=== PATIENT | female | born 1995 | race Caucasian/White ===

== ENCOUNTER 2017-08-16 01:08 | Emergency (ER) | payer BC ==
[~2017-08-16] VITALS: Ht 162.6 cm; Wt 66.7 kg
[2017-08-16 01:10] VITALS: BP 143/100
[2017-08-16] MEDS ORDERED: LIDOCAINE-MPF 1%, 5ML INFIL ONE (01:30)
[2017-08-16] MEDS ORDERED: BACITRACIN ZINC OINT 500U/GM, 0.9 GM ONE (01:59)
[2017-08-16] MEDS ORDERED: SODIUM CHLORIDE 0.9% 1,000ML IVBOLUS ONE (02:00)
== END 2017-08-16 02:20 | disposition home or self-care (01) ==
LOC: ED 02:00
DX: S01.111A Laceration without foreign body of right eyelid and periocular area, initial encounter (principal); X58.XXXA Exposure to other specified factors, initial encounter; Y93.89 Activity, other specified; Y92.410 Unspecified street and highway as the place of occurrence of the external cause; Y99.8 Other external cause status
CPT/HCPCS: 12011; 99283